=== PATIENT | male | born 1975 | race Hispanic/Latino ===

== ENCOUNTER 2024-06-21 07:27 | Day surgery (SDC) | payer OTHER ==
[2024-06-19 12:41] VITALS: BP 155/87; PULSE 60; RESP 18; TEMP 98.6
[2024-06-21] VITALS (17 sets, daily range): BP systolic 113–130; BP diastolic 52–84; PULSE 44–61; RESP 14–18; TEMP 96.7–97.4
[~2024-06-21] VITALS: Ht 172.7 cm; Wt 136.3 kg
[~2024-06-21 07:27] MED LIST: ATOR10 PO; CHOL100046 PO; CITA-107 PO; GABA300C PO; HYDR-3421 PO; LISI1TAB51 PO; MELO-108 PO; PRAZ2CAP2 PO; PROP40TA7 PO
[2024-06-21] MEDS: ceFAZolin SODIUM 2 GM VIAL ONE (08:21)
[2024-06-21] MEDS: ceFAZolin SODIUM 1 GM VIAL ONE (08:31)
[2024-06-21] MEDS ORDERED: FAMOTIDINE 20MG VIAL IV ONE (08:47)
[2024-06-21] MEDS ORDERED: acetaMINOPHEN 100 ML ONE (08:47)
[2024-06-21] MEDS ORDERED: ketaMINE 50MG/ML SYRINGE 50 MG/ML DISP.SYRIN ONE (08:49)
[2024-06-21] MEDS ORDERED: ROPivacaine 0.5% 5MG/ML 30ML ONE (08:49)
[2024-06-21] MEDS ORDERED: LIDOCAINE PF 100MG/5ML (2%) SYRINGE 5ML ONE (08:50)
[2024-06-21] MEDS ORDERED: rocuRONium bROMide 10MG/1ML 5ML VL ONE ×2 (08:50→11:19)
[2024-06-21] MEDS ORDERED: proPOFol 10 MG/ML 20ML VIAL IV ONE (08:50)
[2024-06-21] MEDS ORDERED: FENTanyl CITRate PF 50 MCG/1 ML 2ML VIAL ONE (08:51)
[2024-06-21] MEDS ORDERED: ondanSETRON 4MG INJ ONE (10:43)
[2024-06-21] MEDS ORDERED: dexaMETHasone SOD PHOSPHATE 10MG/ML 1ML VIAL ONE (10:43)
[2024-06-21] MEDS ORDERED: HYDR-4060 PO (10:53)
[2024-06-21] MEDS: LACTATED RINGERS 1000ML 1,000 ML IV ONE (11:07)
[2024-06-21] MEDS ORDERED: ePHEDrine SULFate 50 MG/ML AMPULE ONE (11:14)
[2024-06-21] MEDS: EPINEPHrine 1 MG/ML 30ML VIAL IJ ONE (11:20)
[2024-06-21] MEDS ORDERED: GLYCOPYRROLATE 0.2 MG/ML 5 ML VIAL ONE (12:17)
[2024-06-21] MEDS ORDERED: NEOSTIGMINE METHYLSULFATE 1MG/ML IV ONE (12:17)
[2024-06-21] MEDS ORDERED: SUGAMMADEX SODIUM 200 MG/2 ML VIAL IV ONE (12:32)
[2024-06-21] MEDS: GLYCOPYRROLATE 0.2 MG/ML 5 ML VIAL ONE (12:53)
--- NOTE | 2024-06-21 14:21 | OP ---
Operative Note: DATE OF PROCEDURE: 06/21/24 SURGEON: GERTRUDE RAMAN MD CLAM BED WORKER: Simón Salazar ANESTHESIA: General and interscalene block ANESTHESIOLOGIST/CEMENT [employer] OPERATOR: Thelma Ta CRNA PREOPERATIVE DIAGNOSIS: Right shoulder degenerative labral tearing, subacromial impingement, acromioclavicular joint osteoarthritis POSTOPERATIVE DIAGNOSIS: Right shoulder degenerative labral tearing, subacromial impingement, acromioclavicular joint osteoarthritis PROCEDURE: Right shoulder arthroscopic labral debridement, subacromial decompression, distal clavicle excision ESTIMATED BLOOD LOSS: 2 cc FINDINGS: Insertion of the arthroscope into the shoulder the patient had significant degenerative tearing of the labrum with frayed labral tissue and slightly increased excursion of the labrum on the superior and anterior aspect. The long head of the biceps appeared healthy at its insertion with only a slight sign of a small longitudinal rent in the tendon of the lower with the rotator interval. Rotator cuff appeared intact subscapularis supraspinatus and infraspinatus insertion. With probing there was slight increase in mobility in the superior aspect of the labrum when probed. Also with the anterior to anterior inferior aspect of the labrum was significantly torn and shredded. Labrum was debrided back to a stable leading edge we will follow along the superior aspect and the anterior inferior aspect. The acromioclavicular joint did show large osteophyte at the acromial aspect. Additionally there was significant lateral acromial spur. We then performed our distal clavicle resection and subacromial decompression. INDICATIONS: 49-year-old male with a history of right shoulder pain. They were failing conservative management and found on MRI to have signs labral tearing in addition to the acromioclavicular joint osteoarthritis and lateral spurring of the acromion consistent with clinical examination showing subacromial impingement. After discussion of the risk, benefits, and alternatives, the patient voluntarily agreed to undergo the aforementioned procedure. DESCRIPTION OF PROCEDURE: Patient was properly identified in the preoperative holding area. Surgical site marking was verified and surgery consent reviewed. The patient was then taken to the operating room and placed in supine position on the OR table. After induction of general anesthesia, preoperative antibiotics were given, all bony prominences were well-padded as the patient was transitioned into beach chair position. The right upper extremity was then prepped and draped in usual sterile fashion. Surgical time out was done verifying correct surgery, side, site, and location to be performed. We then began the procedure by using an 18-gauge spinal needle to inject the shoulder joint with normal saline to distend the joint capsule. A posterior lateral portal was established using 11 blade and we inserted our arthroscope through this portal. We established an anterior portal using needle localization under direct visualization and placed a working cannula through this portal. We then performed a diagnostic arthroscopy with the aforementioned findings. We then evaluated the tear of the labrum & the long head of the biceps. With the shaving cautery device we debrided the labrum back to a stable leading edge. We probed the biceps to ensure there was not too much excursion of the remaining tissue. The biceps tendon and noted to be healthy in appearance. We then repositioned the arthroscope into the subacromial space. Using the c autery device we performed the subacromial decompression with resection of bursal tissue allowing for us to identify the lateral acromial spur and mild arthritic findings of the acromioclavicular joint. We then inserted the bur device where we resected the inferior 2-3 mm of bone from the undersurface of the acromion. The bur was then used to remove the lateral proximally 8 mm of bone off of the distal clavicle. Additionally we used the bur to remove the inferiorly projecting osteophyte off of the acromion. We then removed as much of the arthroscopic fluid as possible and removed the arthroscopic instruments and camera. We expressed some the remaining fluid from the surrounding soft tissues. 3-0 nylon was then used to close the skin portals. Sterile soft dressing was applied. Patient was then placed into a shoulder immobilizer, awakened from anesthesia, and taken the recovery room in stable condition. GERTRUDE RAMAN MD Jun 21, 2024 14:21
--- NOTE | 2024-06-21 14:28 | NUR ---
Patient aox4. Denies c/o pain or discomfort. Surgical dressing clean, dry and intact. Neurovascularly intact with sling properaly fitted. Voiced understanding to surgical site precautions and follow up expectations. Ambulated to bathroom with standby assist. Voided large amount of clear urine. PIV discontinued with catheter tip intact. Full and complete Discharge instructions given to Patient and . All questions answered. W/C to POV with to Home.
== END 2024-06-21 14:30 | disposition home or self-care (01) ==
LOC: DAH 07:27
PROVIDERS: ATTEND Student in an Organized Health Care Education/Training Program
DX: S43.431A Superior glenoid labrum lesion of right shoulder, initial encounter (principal); M19.011 Primary osteoarthritis, right shoulder; M25.811 Other specified joint disorders, right shoulder; M75.41 Impingement syndrome of right shoulder; E78.5 Hyperlipidemia, unspecified; F41.9 Anxiety disorder, unspecified; F32.A Depression, unspecified; G43.909 Migraine, unspecified, not intractable, without status migrainosus; E66.9 Obesity, unspecified; I12.9 Hypertensive chronic kidney disease with stage 1 through stage 4 chronic kidney disease, or unspecified chronic kidney disease; N18.9 Chronic kidney disease, unspecified; G47.33 Obstructive sleep apnea (adult) (pediatric); M19.90 Unspecified osteoarthritis, unspecified site; F43.10 Post-traumatic stress disorder, unspecified; G25.81 Restless legs syndrome; G47.00 Insomnia, unspecified; Z79.899 Other long term (current) drug therapy; X58.XXXA Exposure to other specified factors, initial encounter; Y93.89 Activity, other specified; Y92.89 Other specified places as the place of occurrence of the external cause; Y99.8 Other external cause status
CPT/HCPCS: 29824; 29826; 64415; A4663; J7030; A4565; J7120; J3490 ×7; J3010; J0690 ×2; J1100; J0171; J2003; J2704; J2405; J2710; J2795; A6223; A4649; A4930; A5120; A4215; A4213; A4222; A4221; A4216; A4223 ×2; A4600